=== PATIENT | female | born 1975 | race Caucasian/White ===

== ENCOUNTER → 2016-09-27 | Outpatient (CLI) | payer BC ==
--- NOTE | 2016-09-27 16:57 | KCIC ---
PROCEDURE MR of the left knee HISTORY Left knee pain after injury 5 weeks ago. Pain is medial. Instability. TECHNIQUE Standard noncontrast images are obtained. COMPARISON None FINDINGS Mild signal within the medial meniscus but no evidence of a tear. No evidence of a lateral meniscal tear. Anterior cruciate ligament is thick and poorly defined with internal increased signal and mild laxity, compatible with a at least partial tear. Articular surface fracture of the posterior lateral tibial plateau with depression and rotation of its posterior aspect approximately 5 millimeter. There is also a tiny 1-2 millimeters full-thickness defect of the articular cartilage within this fragment. Posterior cruciate ligament intact Medial collateral ligament intact Iliotibial band unremarkable Fibular collateral ligament, biceps femoris tendon and popliteus tendon are intact. Extensor mechanism intact Small joint effusion No evidence of an osteochondral loose body. No additional fractures are identified. Small Ferrer cyst. IMPRESSION 1. Findings compatible with anterior cruciate ligament tear. 2. Intra-articular fracture of the posterior lateral tibial plateau with posterior depression and rotation, likely due to pivot-shift mechanism of injury. Note there is also a small articular cartilage defect involving its fragment. Electronically signed by: Gurinder Covington MD (Sep 27, 2016 16:55:43)
== END | disposition home or self-care (01) ==
LOC: EDBD 09:20 → KCIC MRI 09:20 → EDBD 09:30
PROVIDERS: ATTEND Chiropractor
DX: M25.562 Pain in left knee (principal); S83.512A Sprain of anterior cruciate ligament of left knee, initial encounter
CPT/HCPCS: 73721

== ENCOUNTER → 2016-10-04 | Outpatient (CLI) | payer BC ==
--- NOTE | 2016-10-04 14:43 | KCIC ---
MRI right knee without contrast Indication: Right knee pain for 4 years, particularly behind the patella. Multiplanar multi sequence imaging of the right knee was performed without contrast. There is a small to moderate knee joint effusion. There is a tiny Bakers cyst present. There is a very small subchondral cyst and edema involving the apex of the patella. Overlying articular cartilage appears to be intact without evidence of osteochondral defect. There is some mild chondromalacia and heterogeneity involving the articular cartilage of the lateral femoral condyle. No chondral or osteochondral defect is seen. There is mild medial and lateral compartmental degenerative change. The ACL and PCL are intact. The medial and lateral collateral ligament complexes appear intact. The medial and lateral menisci appear intact. No tear or displaced meniscal fragment is seen. The extensor mechanism is unremarkable. Impression: Small joint effusion and mild degenerative changes, as described. No ligamentous or meniscal tear is detected. Electronically signed by: Freddy Luke MD (Oct 04, 2016 14:42:02)
== END | disposition home or self-care (01) ==
LOC: KCIC MRI 12:15
PROVIDERS: ATTEND Chiropractor
DX: M25.561 Pain in right knee (principal)
CPT/HCPCS: 73721